=== PATIENT | female | born 1990 ===

== ENCOUNTER 2025-02-07 14:00 | Emergency (ER) | payer OTHER | END 2025-02-07 15:07 | disposition home or self-care (01) | LOC: MW.ED 14:00 | DX: M25.531 Pain in right wrist (principal); Z88.0 Allergy status to penicillin; Z88.8 Allergy status to other drugs, medicaments and biological substances; Z79.890 Hormone replacement therapy | CPT/HCPCS: 29125; 73110; 99283; A9270 ==